=== PATIENT | male | born 1990 | race Caucasian/White ===

== ENCOUNTER 2021-07-07 17:27 | Emergency (ER) | payer OTHER, SELFPAY ==
--- NOTE | 2021-07-07 17:31 | ED.URI ---
HPI - URI/Sore Throat General Chief Complaint: Upper Respiratory Infection Stated Complaint: Chest Congestion/Cough/Dizziness Time Seen by Provider: 07/07/21 17:32 Source: patient and RN notes reviewed History of Present Illness HPI Narrative: Patient is a 31-year-old male who presents the urgent care with complaints of chest congestion and cough. Patient states is been ongoing for approximately 3 to 4 days and he cannot return to work until he is evaluated in the clinic. Patient states that he test for Covid weekly and has a Covid test was negative on Thursday at work. Patient denies of any fevers, nausea, vomiting. Denies of any wheezes. States that he has been taking Mucinex [id number]. No other acute complaints. No acute distress noted. Patient aware of the plan of care. Some parts of this dictation were generated by voice recognition software and may contain typographical and/or grammatical inaccuracies. Related Data Allergies Allergy/AdvReac Type Severity Reaction Status Date / Time Cat Dander Allergy Mild Watery Eye Uncoded 07/07/21 17:46 ENVIRONMENTAL ALLERGENS Allergy Mild Watery Eye Uncoded 07/07/21 17:46 Review of Systems Review of Systems: CONSTITUTIONAL: Denies fever, chills, or sweats. EYES: Denies visual changes, redness, or discharge. ENT: Denies rhinorrhea, congestion, sore throat, or otalgia. Reports of postnasal drainage CARDIOVASCULAR: Denies chest pain, palpitations, or edema. RESPIRATORY: Reports of cough and chest congestion without dyspnea GASTROINTESTINAL: Denies abdominal pain, nausea, vomiting, or diarrhea. GENITOURINARY: Denies dysuria or hematuria. SKIN: Denies rash or itching. MUSCULOSKELETAL: Denies back pain, joint pain, or myalgia. NEUROLOGIC: Denies headache, numbness, or weakness. All other systems reviewed are negative, except as documented in HPI. [facility] Family History Family History (Updated 09/10/12 @ 13:39 by DOCTOR UNKNOWN) Grandparent Diabetes mellitus Social History Social History Smoking status: Never smoker Alcohol intake: never Comments At the time of my signature, I reviewed and agree with the nursing past medical, surgical, social, and family history. There is no relevant family history pertinent to the patient complaint. Exam Narrative: GENERAL: This is a well-nourished, well-developed patient, in no apparent distress. HEAD: normocephalic, atraumatic. EYES: PERRL. Sclera clear/white. Vision is grossly intact. EARS: External ears normal, auditory canals clear and without drainage, TMs normal without perforation. Hearing grossly intact. NOSE: External nose normal with no obvious nasal discharge, nares without redness, no rhinorrhea. THROAT: Mucous membranes moist, posterior pharynx clear. Moderate postnasal drainage NECK: Neck supple CARDIOVASCULAR: Regular rate and rhythm without murmurs, gallops, or rubs. RESPIRATORY: Clear to auscultation. Breath sounds equal bilaterally. No wheezes, rales, or rhonchi. SKIN: warm, intact with no suspicious lesions or rash, good texture and turgor. NEURO: awake, alert, and oriented to person, place and time. There were no obvious focal neurologic abnormalities. EXTREMITIES: No clubbing, cyanosis, or edema. Course Vital Signs Vital signs: Vital Signs Temperature 98.3 F 07/07/21 17:45 Pulse Rate 98 07/07/21 17:45 Respiratory Rate 16 07/07/21 17:45 Blood Pressure 143/94 H 07/07/21 17:45 Pulse Oximetry 100 07/07/21 17:45 Temperature 98.3 F 07/07/21 17:45 Pulse Rate 98 07/07/21 17:45 Respiratory Rate 16 07/07/21 17:45 Blood Pressure 143/94 H 07/07/21 17:45 Pulse Oximetry 100 07/07/21 17:45 Reviewed-patient is informed that they may have pre-hypertension or hypertension based on a blood pressure reading in the department. I recommend the patient call the primary care provider listed on their discharge instructions or a physician of their choice this week to arrange follow-up for furt
[2021-07-07 17:45] VITALS: BP 143/94; PULSE 98; RESP 16; TEMP 36.8; O2SAT 100
== END 2021-07-07 18:01 | disposition home or self-care (01) ==
PROVIDERS: Emergency Provider Nurse Practitioner Family; PCP Family Medicine
DX: J00 Acute nasopharyngitis [common cold] (principal)
CPT/HCPCS: 99202; G0463

== ENCOUNTER 2021-09-24 09:41 | Outpatient (CLI) | payer OTHER, SELFPAY ==
[2021-09-24 10:08] LABS: Basophils Absolute Auto 0.06 K/mm3 (0.00-0.10); Basophils Percent Auto 0.8 % (0.0-1.0); Eosinophils Absolute Auto 0.19 K/mm3 (0.02-0.50); Eosinophils Percent Auto 2.6 % (1.0-6.0); Hematocrit 47.7 % (40.0-54.0); Hemoglobin 16.7 g/dL (14.0-18.0); Immature Granulocyte Absolute 0.02 K/mm3 (0.00-0.00); Immature Granulocyte Percent A 0.3 % (0.0-0.0); Lymphocytes Absolute Auto 3.04 K/mm3 (1.10-4.50); Lymphocytes Percent Auto 42.2 % (18.0-42.0); Mean Corpuscular Hemoglobin 31.2 pg (27.0-31.0); Mean Corpuscular Volume 89.2 fL (78.0-102.0); Mean Platelet Volume 11.7 fl (8.7-11.0); Monocytes Absolute Auto 0.78 K/mm3 (0.10-0.90); Monocytes Percent Auto 10.8 % (2.0-11.0); Neutrophils Absolute Auto 3.1 K/mm3 (1.7-7.2); Neutrophils Percent Auto 43.3 % (50.0-70.0); Platelet Count Result 183 K/mm3 (150-420); Red Blood Count 5.35 M/mm3 (4.70-6.10); Red Cell Distribution Width 12.1 % (11.6-14.4); White Blood Count 7.2 K/mm3 (4.8-10.8)
[2021-09-24 11:21] LABS: Anion Gap 9 mmol/L (8-16); Blood Urea Nitrogen 16 mg/dL (7-18); Calcium 9.3 mg/dL (8.5-10.1); Carbon Dioxide 30 mmol/L (21-32); Chloride 105 mmol/L (98-108); Cholesterol 249 mg/dL (0-200); Estimated Glomerular Filt Rate > 60; Glucose 90 mg/dL (70-99); HDL Direct 36 mg/dL (40-60); LDL Cholesterol Calculated 175 mg/dL (<130); Osmolality Calculated 299 mOsm/kg (285-295); Potassium 4.6 mmol/L (3.5-5.1); Sodium 144 mmol/L (136-145); Triglycerides 192 mg/dL (0-150)
== END 2021-09-24 09:42 | disposition home or self-care (01) ==
LOC: CHSLAB 09:43
PROVIDERS: PCP Family Medicine; Visit Provider Physician Assistant Medical
DX: B00.9 Herpesviral infection, unspecified (principal); Z00.00 Encounter for general adult medical examination without abnormal findings; Z13.1 Encounter for screening for diabetes mellitus; Z13.220 Encounter for screening for lipoid disorders
CPT/HCPCS: 36415; 80048; 80061; 85025

== ENCOUNTER 2023-05-04 14:30 | Outpatient (CLI) | payer OTHER, SELFPAY ==
[2023-05-04 20:28] LABS: HIV 1/2 Ab P24 Ag Result Negative (Negative)
[2023-05-04 20:40] LABS: Hepatitis B Surface Antigen Negative (Negative)
[2023-05-04 20:46] LABS: HAV RESULT Negative (Negative); Hepatitis B Core IgM Result Negative (Negative)
[2023-05-04 20:57] LABS: Hepatitis C Virus Antibody Negative (Negative)
== END 2023-05-04 14:31 | disposition home or self-care (01) ==
LOC: ANHGOSHLAB 14:32
PROVIDERS: PCP Family Medicine; Visit Provider Family Medicine
DX: Z77.21 Contact with and (suspected) exposure to potentially hazardous body fluids (principal)
CPT/HCPCS: 36415; 80074; 86703; G0432